=== PATIENT | male | born 1955 | race Caucasian/White ===

== ENCOUNTER 2017-11-29 07:21 | Day surgery (SDC) | payer BC ==
[2017-11-24 17:15] VITALS: BMI 25.8
[2017-11-29] MEDS ORDERED: oxyCODONE HCL 5 MG TABLET PO PRN (09:59)
[2017-11-29] MEDS ORDERED: ONDANSETRON 4 MG/2 ML VIAL IVPUSH PRN (09:59)
[2017-11-29] MEDS ORDERED: LACTATED RINGERS SOLUTION 1,000 ML IV SCH (10:00)
[2017-11-29] MEDS ORDERED: POVIDONE-IODINE 5% OPHTHALMIC PREP 30 ML SOLUTION ONE (10:02)
[2017-11-29] MEDS ORDERED: BUPIVACAINE HCL/PF 0.5% (5MG/ML) 10 ML VIAL ONE (10:02)
[2017-11-29] MEDS ORDERED: TETRACAINE 0.5% OPHTH SOLN 2 ML BOTTLE ONE (10:02)
[2017-11-29] MEDS ORDERED: ERYTHROMYCIN 0.5% OPHTHALMIC OINTMENT 3.5 GM TUBE ONE (10:02)
[2017-11-29] MEDS ORDERED: LIDOCAINE 1%/EPI 1:100000 (20 ML MULTI DOSE VIAL) ONE (10:03)
[2017-11-29] MEDS ORDERED: PROPOFOL 20 ML ONE ×3 (10:26)
[2017-11-29] MEDS ORDERED: MIDAZOLAM HCL 2 MG/2 ML SINGLE DOSE VIAL ONE (10:26)
[2017-11-29] MEDS ORDERED: ceFAZolin SODIUM 1 GM VIAL ONE (10:34)
[2017-11-29] MEDS ORDERED: ONDANSETRON 4 MG/2 ML VIAL ONE (10:34)
[2017-11-29] MEDS ORDERED: DEXAMETHASONE SOD PHOSPHATE 4 MG/1 ML VIAL ONE (10:34)
[2017-11-29 12:41] VITALS: TEMP 97.4
--- NOTE | 2017-11-29 12:42 | OP ---
DATE OF OPERATION: 11/29/2017 PREOPERATIVE DIAGNOSIS: Floppy right upper lid with ectropion. POSTOPERATIVE DIAGNOSIS: Floppy right upper lid with ectropion. PROCEDURE: 1. Lateral tarsal strip right upper lid. 2. Full-thickness wedge resection medial right upper lid. SURGEON: Traci Chester MD ANESTHESIA: Local with sedation. COMPLICATIONS: None. ESTIMATED BLOOD LOSS: 3-5 mL. OPERATIVE REPORT: The patient was brought to the operating room and placed on the operating room table. Vital signs were monitored by Anesthesia. A time-out was performed and then an inverted pentagon was marked in the medial portion of the right upper lid after testing its laxity and then a lateral canthal line was marked in the right lateral canthus. After ensuring the sedation, administered 2% Xylocaine and 1:100,000 epinephrine and 0.5% Marcaine. It was injected subcutaneously in the medial portion of the right upper lid and lateral canthus subcutaneously and then down to periosteum on the lateral 1/3 of the upper and lower lid for a total of 3-4 mL. The patient was prepped and draped in the usual sterile fashion exposing both eyes. A full-thickness wedge resection was carried out with Ludivina scissors in the medial portion of the eyelid, and this was repaired with 3 interrupted 6-0 silk sutures, 1 through the anterolateral side, 1 through the posterior mucocutaneous junction, and then a vertical mattress suture inside the weir line creating a central pucker. These were tied and left inferiorly. The tarsal plate was anastomosed with 3 interrupted partial-thickness 6-0 Vicryl sutures. The muscle layer was closed with subcuticular 6-0 chromic and the skin with interrupted and running 6-0 plain suture removing a standard cutaneous deformity at the superior incision. The marginal sutures were removed supranasally, and these were tied with a single 6-0 silk suture, keeping away from the cornea. The lateral canthal incision was now made with a 15 blade and carried down to periosteum with a [place] needle. The inferior kevin of the lateral canthal tendon was and isolated, and lateral tarsal stoop was created, which was sutured to the internal surface of the orbital rim at the junction over the superior kevin lateral canthal tendon with a double-arm 5-0 Prolene suture reinforced with 6-0 Vicryl. The lateral canthal angle was reformed with a 5-0 chromic through the weir line of the upper lid and lower lid in buried fashion. Lateral to this, the muscle layer was closed with 5-0 chromic. The skin was closed with running 6-0 plain. This completed the lateral tarsal strip as well as the full-thickness wedge resection of the medial right upper lid. Erythromycin ointment was placed in the eye, another suture medially and laterally in the eyelid. The sutures from the left upper lid surgery, which had been performed 2 weeks and had been discussed with the patient, were removed from the margin and from the lateral canthus, and the patient was taken to the recovery room in stable condition. TRACI CHESTER M.D. [id number]
[2017-11-29 13:51] VITALS: BP 136/78; PULSE 56
--- NOTE | 2017-11-30 16:16 | PATH ---
Surgical Pathology Report Patient Name: MIKAYLA SOTO [facility]. Rec. #: [id number] /Age/Gender: 1955 (Age: 62) / M Account: [id number] Location: [facility] Taken: 11/29/2017 Received: 11/29/2017 Reported: 11/30/2017 Physicians: Michael Koroma Specimen(s) Received RIGHT UPPER EYELID Clinical History Right floppy upper eyelid Final Diagnosis UPPER EYELID, RIGHT, WEDGE RESECTION: PORTION OF EYELID WITHOUT SIGNIFICANT PATHOLOGIC FINDINGS. Electronically Signed Radha Unger M.D. Gross Description Received in formalin labeled "right upper eyelid," is a 0.7 x 0.4 x 0.3 cm chavez portion of unoriented skin with underlying soft tissue. The underlying soft tissue is inked green and the specimen is submitted in toto in one cassette. /11/29/2017 saudi11/29/2017
== END 2017-11-29 12:20 | disposition home or self-care (01) ==
LOC: FASU 07:21
PROVIDERS: ATTEND Ophthalmology
PROC: 08SN0ZZ Reposition Right Upper Eyelid, Open Approach (ICD-10-PCS; principal; 2017-11-29 10:46)
DX: H02.101 Unspecified ectropion of right upper eyelid (principal); H02.89 Other specified disorders of eyelid
CPT/HCPCS: 82962; 88304-TC; 94760